=== PATIENT | female | born 1930 | race Caucasian/White ===

== ENCOUNTER 2016-09-27 20:31 | Emergency (ER) | payer OTHER ==
[~2016-09-27] VITALS: Ht 152.4 cm; Wt 94.4 kg
[2016-09-27 21:16] LABS: ADD MIUA? NO; BILIRUBIN NEGATIVE; BLOOD NEGATIVE; COLOR YELLOW ((YELLOW)); GLUCOSE (STRIP) NEGATIVE; KETONES NEGATIVE; LEUKOCYTES NEGATIVE; NITRITE NEGATIVE; PROTEIN (STRIP) NEGATIVE; SPECIFIC GRAVITY 1.014 (1.000-1.030); UCUL ADDED? NO; UROBILINOGEN 0.2 MG/DL (0.2-1.0)
[2016-09-27 22:00] LABS: HEMATOCRIT 38.2 % (36.0-46.0); MCHC 30.9 G/DL (30.0-36.0); MCV 84.1 FL (83-99); MEAN PLAT.VOLUME 12.5 uM^3 (9.5-12.4); PLATELET COUNT 209 K/uL (156-360); RBC DIS.WIDTH-CV 15.7 % (11.8-14.6); RBC DIS.WIDTH-SD 47.6 % (39-53); RED BLOOD COUNT 4.54 M/uL (3.80-5.20); WHITE BLOOD COUNT 10.5 K/uL (4.1-10.2)
[2016-09-27 22:09] LABS: CHLORIDE 105 mEq/L (99-109); GLUCOSE 101 mg/dL (70-99); POTASSIUM 3.8 mEq/L (3.7-5.4); SODIUM 147 mEq/L (136-147)
[2016-09-27 22:10] LABS: ANION GAP 11 MEQ/L (2-14)
[2016-09-27 22:13] LABS: GFR ESTIMATE (CALCULATED) 24 mL/min/; UREA NITROGEN (BUN) 31 mg/dL (9-23)
[2016-09-28 00:35] VITALS: BP 139/74
== END 2016-09-28 00:55 | disposition home or self-care (01) ==
LOC: EME 20:31
DX: R32 Unspecified urinary incontinence (principal); N28.9 Disorder of kidney and ureter, unspecified; I10 Essential (primary) hypertension; E11.9 Type 2 diabetes mellitus without complications; Z87.891 Personal history of nicotine dependence
CPT/HCPCS: 76770; 80048; 81003; 85027; 99281; 99284

== ENCOUNTER 2017-03-08 16:19 | Observation (INO) | payer OTHER ==
[~2017-03-08] VITALS: Ht 162.6 cm; Wt 101.2 kg
[2017-03-08 17:01] LABS: HEMATOCRIT 41.6 % (36.0-46.0); MCH 25.2 PG (29.0-34.0); MCV 83.9 FL (83-99); MEAN PLAT.VOLUME 11.6 uM^3 (9.5-12.4); PLATELET COUNT 265 K/uL (156-360); RBC DIS.WIDTH-CV 16.1 % (11.8-14.6); RED BLOOD COUNT 4.96 M/uL (3.80-5.20)
[2017-03-08 17:12] LABS: CHLORIDE 103 mEq/L (99-109); POTASSIUM 3.2 mEq/L (3.7-5.4); SODIUM 143 mEq/L (136-147)
[2017-03-08 17:14] LABS: GLUCOSE 127 mg/dL (70-99)
[2017-03-08 17:15] LABS: ANION GAP 13 MEQ/L (2-14)
[2017-03-08 17:17] LABS: GFR ESTIMATE (CALCULATED) 25 mL/min/
[2017-03-08 17:18] LABS: UREA NITROGEN (BUN) 30 mg/dL (9-23)
[2017-03-08 17:27] LABS: TROP-I INTERPRETATION NEGATIVE; TROPONIN-I 0.01 ng/mL (0.0-0.30)
[2017-03-08] MEDS ORDERED: ATORVASTATIN CA40 MG PO (18:20)
[2017-03-08] MEDS ORDERED: METFORMIN HCL500 MG PO (18:20)
[2017-03-08] MEDS ORDERED: EZETIMIBE10 MG PO (18:20)
[2017-03-08] MEDS ORDERED: LASIX40 MG PO (18:20)
[2017-03-08] MEDS ORDERED: NORVASC10 MG PO (18:20)
[2017-03-08] MEDS ORDERED: COREG12.5 M1 PO (18:21)
[2017-03-08] MEDS ORDERED: HYZAAR 100-11 TABLET PO (18:21)
[2017-03-08] MEDS ORDERED: KLOR-CON M2020 MEQ PO (18:21)
[2017-03-08 20:02] VITALS: BP 130/62
[2017-03-08 21:48] LABS: POINT-OF-CARE METER ID UU14162513
[2017-03-08 23:54] VITALS: BP 147/62
[2017-03-08 23:58] LABS: TROP-I INTERPRETATION NEGATIVE; TROPONIN-I 0.01 ng/mL (0.0-0.30)
[2017-03-09 02:57] VITALS: BP 116/67
[2017-03-09 05:56] LABS: HEMATOCRIT 39.5 % (36.0-46.0); MCH 25.3 PG (29.0-34.0); MCHC 30.4 G/DL (30.0-36.0); MCV 83.3 FL (83-99); MEAN PLAT.VOLUME 11.7 uM^3 (9.5-12.4); PLATELET COUNT 219 K/uL (156-360); RBC DIS.WIDTH-CV 15.9 % (11.8-14.6); RBC DIS.WIDTH-SD 48.6 % (39-53); RED BLOOD COUNT 4.74 M/uL (3.80-5.20); WHITE BLOOD COUNT 11.8 K/uL (4.1-10.2)
[2017-03-09 06:19] LABS: ANION GAP 14 MEQ/L (2-14); CHLORIDE 104 MEQ/L (99-109); GFR ESTIMATE (CALCULATED) 24 mL/min/; GLUCOSE 183 mg/dL (70-99); SAMPLE HEMOLYSIS CHECK 0; SAMPLE ICTERIC CHECK 0; SAMPLE LIPEMIA CHECK 0; SODIUM 143 MEQ/L (136-147); UREA NITROGEN (BUN) 39 mg/dL (9-23)
[2017-03-09 06:22] LABS: TROP-I INTERPRETATION NEGATIVE; TROPONIN-I 0.03 ng/mL (0.0-0.30)
[2017-03-09 06:32] VITALS: BP 129/61
[2017-03-09 06:43] LABS: POTASSIUM 4.5 MEQ/L (3.7-5.4)
[2017-03-09 11:14] VITALS: BP 134/65
[2017-03-09 12:22] LABS: POINT-OF-CARE METER ID UU13113831
[2017-03-09 16:03] VITALS: BP 136/96
[2017-03-09 17:13] LABS: POINT-OF-CARE METER ID UU13113831
[2017-03-09] MEDS ORDERED: DUONEB 2.5-0.5 M3 ML AEROSOL (17:27)
[2017-03-09] MEDS ORDERED: ZITHROMAX250 MG PO (17:27)
[2017-03-09] MEDS ORDERED: Robitussin AC,Tussi- PO (17:27)
== END 2017-03-09 18:47 | disposition home health service (06) ==
LOC: EME 16:19 → EDOF 17:48 → 5WEST 17:48
PROVIDERS: Emergency Medicine; Family Medicine
DX: R07.9 Chest pain, unspecified (principal); R05 Cough; Z85.3 Personal history of malignant neoplasm of breast; I10 Essential (primary) hypertension; E11.9 Type 2 diabetes mellitus without complications; E87.6 Hypokalemia
CPT/HCPCS: 71020; 80048; 82948; 84484; 85027; 93005; 94640; 94640 76; 99202; 99281; 99285; G0378; J0456; J0696; J1644; J1885; J2270; J2930; J7050; J7512

== ENCOUNTER 2017-10-17 06:48 | Inpatient (IN) | payer OTHER ==
[~2017-10-17] VITALS: Ht 162.6 cm; Wt 102.9 kg
[~2017-10-17 06:48] MED LIST: ATORVASTATIN CA40 MG PO; COREG12.5 M1 PO; DUONEB 2.5-0.5 M3 ML AEROSOL; EZETIMIBE10 MG PO; HYZAAR 100-11 TABLET PO; KLOR-CON M2020 MEQ PO; LASIX40 MG PO; METFORMIN HCL500 MG PO; NORVASC10 MG PO; Robitussin AC,Tussi- PO; ZITHROMAX250 MG PO
[2017-10-17] MEDS ORDERED: AMARYL2 MG PO (07:14)
[2017-10-17] MEDS ORDERED: ADVAIR 250/501 DISK IH (07:15)
[2017-10-17 08:40] LABS: HEMATOCRIT 40.7 % (36.0-46.0); HEMOGLOBIN 12.5 G/DL (11.9-15.5); MCH 26.1 PG (29.0-34.0); MCHC 30.7 G/DL (30.0-36.0); PLATELET COUNT 234 K/uL (156-360); RBC DIS.WIDTH-CV 15.7 % (11.8-14.6); RED BLOOD COUNT 4.79 M/uL (3.80-5.20); WHITE BLOOD COUNT 18.5 K/uL (4.1-10.2)
[2017-10-17 08:49] LABS: ALBUMIN 3.7 g/dL (3.2-4.8); CHLORIDE 107 mEq/L (99-109); SODIUM 142 mEq/L (136-147)
[2017-10-17 08:51] LABS: GLUCOSE 150 mg/dL (70-99)
[2017-10-17 08:52] LABS: TOTAL PROTEIN 8.3 g/dL (6.4-8.3)
[2017-10-17 08:52] LABS: APPEARANCE CLEAR ((CLEAR)); BILIRUBIN NEGATIVE; BLOOD NEGATIVE; COLOR YELLOW ((YELLOW)); GLUCOSE (STRIP) NEGATIVE; KETONES NEGATIVE; LEUKOCYTES NEGATIVE; NITRITE NEGATIVE; PROTEIN (STRIP) NEGATIVE; SPECIFIC GRAVITY 1.015 (1.000-1.030); UCUL ADDED? NO; UROBILINOGEN 0.2 MG/DL (0.2-1.0)
[2017-10-17 08:53] LABS: TOTAL BILIRUBIN 0.2 mg/dL (0.0-1.0)
[2017-10-17 08:55] LABS: ALKALINE PHOSPHATASE 107 IU/L (3-129); GFR ESTIMATE (CALCULATED) 25 mL/min/
[2017-10-17 08:56] LABS: UREA NITROGEN (BUN) 42 mg/dL (9-23)
[2017-10-17 08:57] LABS: AST (GOT) 18 IU/L (2-34)
[2017-10-17 08:58] LABS: ALT (GPT) 24 IU/L (3-49)
[2017-10-17 09:02] LABS: TROP-I INTERPRETATION NEGATIVE; TROPONIN-I 0.01 ng/mL (0.0-0.30)
[2017-10-17 13:16] LABS: HDL CHOLESTEROL 53 MG/DL (Desirable>=50); LDL CHOLESTEROL 118 mg/dL (Desirable<100); NON-HDL CHOLESTEROL 130 mg/dL (Desirable<160); TOTAL CHOLESTEROL 183 mg/dL (Desirable<200); TRIGLYCERIDES 59 MG/DL (Normal: <150)
[2017-10-17 14:30] VITALS: BP 131/78
[2017-10-17 16:00] LABS: HEMATOCRIT 39.1 % (36.0-46.0); MCH 25.6 PG (29.0-34.0); MCHC 30.7 G/DL (30.0-36.0); MCV 83.4 FL (83-99); PLATELET COUNT 270 K/uL (156-360); RBC DIS.WIDTH-CV 15.8 % (11.8-14.6); RBC DIS.WIDTH-SD 47.7 % (39-53); RED BLOOD COUNT 4.69 M/uL (3.80-5.20); WHITE BLOOD COUNT 15.6 K/uL (4.1-10.2)
[2017-10-17 17:46] LABS: ERTH.SED.RATE 100 MM/HR (0-30)
[2017-10-17 20:22] VITALS: BP 159/74
[2017-10-18] VITALS (7 sets, daily range): BP systolic 111–142; BP diastolic 60–101
[2017-10-18 10:41] LABS: HEMOGLOBIN A1c (GLYCOHEMOGLOB) 5.9 % (Below 5.7)
[2017-10-19 06:16] VITALS: BP 138/65
[2017-10-19 07:01] LABS: BASOPHIL (%) 0.3 % (0-1); EOSINOPHIL (%) 1.6 % (0-5); EOSINOPHIL COUNT 0.2 K/uL (0-0.3); HEMATOCRIT 37.2 % (36.0-46.0); HEMOGLOBIN 11.3 G/DL (11.9-15.5); IMMATURE GRANULOCYTE (%) 1.2 % (0.0-0.7); LYMPHOCYTE (%) 22.5 % (15-42); LYMPHOCYTE COUNT 2.1 K/uL (1.0-2.8); MCH 25.8 PG (29.0-34.0); MCHC 30.4 G/DL (30.0-36.0); MCV 84.9 FL (83-99); MONOCYTE (%) 12.7 % (3-12); MONOCYTE COUNT 1.2 K/uL (0-0.8); NEUTROPHIL (%) 61.7 % (45-76); NEUTROPHIL COUNT 5.7 K/uL (1.8-6.4); RBC DIS.WIDTH-CV 15.4 % (11.8-14.6); RBC DIS.WIDTH-SD 48.6 % (39-53); RED BLOOD COUNT 4.38 M/uL (3.80-5.20); WHITE BLOOD COUNT 9.3 K/uL (4.1-10.2)
[2017-10-19 07:06] LABS: CHLORIDE 105 MEQ/L (99-109); CREATININE 1.7 MG/DL (0.6-1.3); GFR ESTIMATE (CALCULATED) 30 mL/min/; GLUCOSE 122 mg/dL (70-99); POTASSIUM 3.4 MEQ/L (3.7-5.4); SODIUM 142 MEQ/L (136-147); UREA NITROGEN (BUN) 27 mg/dL (9-23)
[2017-10-19 07:40] LABS: PLAT.SUFFICIENCY ADEQUATE
[2017-10-19 07:43] VITALS: BP 142/62
[2017-10-19 07:45] LABS: PLATELET COUNT 188 K/uL (156-360)
[2017-10-19 12:21] VITALS: BP 117/57
[2017-10-19 16:04] VITALS: BP 95/51
[2017-10-19 20:36] VITALS: BP 105/81
[2017-10-19 23:25] VITALS: BP 103/55
[2017-10-20 09:07] VITALS: BP 144/62
[2017-10-20 12:46] VITALS: BP 138/66
[2017-10-20 16:13] VITALS: BP 104/57
[2017-10-20 17:05] VITALS: BP 133/70
[2017-10-20 19:37] VITALS: BP 112/54
[2017-10-20 23:53] VITALS: BP 109/55
[2017-10-21 04:58] VITALS: BP 143/69
[2017-10-21 06:27] LABS: BASOPHIL (%) 0.2 % (0-1); EOSINOPHIL (%) 1.5 % (0-5); EOSINOPHIL COUNT 0.2 K/uL (0-0.3); HEMATOCRIT 32.6 % (36.0-46.0); HEMOGLOBIN 9.6 G/DL (11.9-15.5); IMMATURE GRANULOCYTE (%) 0.9 % (0.0-0.7); LYMPHOCYTE (%) 22.8 % (15-42); LYMPHOCYTE COUNT 2.5 K/uL (1.0-2.8); MCH 25.3 PG (29.0-34.0); MCHC 29.4 G/DL (30.0-36.0); MONOCYTE (%) 11.9 % (3-12); MONOCYTE COUNT 1.3 K/uL (0-0.8); NEUTROPHIL (%) 62.7 % (45-76); NEUTROPHIL COUNT 6.9 K/uL (1.8-6.4); PLATELET COUNT 195 K/uL (156-360); RBC DIS.WIDTH-CV 15.9 % (11.8-14.6); RBC DIS.WIDTH-SD 49.7 % (39-53); RED BLOOD COUNT 3.79 M/uL (3.80-5.20)
[2017-10-21 06:50] LABS: CHLORIDE 105 MEQ/L (99-109); CREATININE 2.1 MG/DL (0.6-1.3); GFR ESTIMATE (CALCULATED) 24 mL/min/; GLUCOSE 108 mg/dL (70-99); POTASSIUM 3.6 MEQ/L (3.7-5.4); SODIUM 142 MEQ/L (136-147); UREA NITROGEN (BUN) 39 mg/dL (9-23)
[2017-10-21 08:00] VITALS: BP 112/55
[2017-10-21] MEDS ORDERED: HEPARIN SO5000 UNIT4 SC (12:35)
[2017-10-21] MEDS ORDERED: TYLENOL REGULA325 MG PO (12:36)
[2017-10-21] MEDS ORDERED: LEVETIRACETAM500 MG PO (12:36)
[2017-10-21] MEDS ORDERED: ASPIR-LOW81 MG PO (12:36)
[2017-10-21 15:56] VITALS: BP 121/65
== END 2017-10-21 15:56 | DRG 100 ==
LOC: EME 06:48 → EDOF 11:20 → 5SOUTH 11:20 → EDOF 11:20 → ENRESERV 11:22 → CANRESERV 11:28 → ENRESERV 11:35 → 5SOUTH 14:24
PROVIDERS: Family Medicine; Physician Assistant
DX: R56.9 Unspecified convulsions (principal); G93.49 Other encephalopathy; E11.649 Type 2 diabetes mellitus with hypoglycemia without coma; E11.22 Type 2 diabetes mellitus with diabetic chronic kidney disease; R26.9 Unspecified abnormalities of gait and mobility; I12.9 Hypertensive chronic kidney disease with stage 1 through stage 4 chronic kidney disease, or unspecified chronic kidney disease; N18.3 Chronic kidney disease, stage 3 (moderate); D63.1 Anemia in chronic kidney disease; E87.6 Hypokalemia; M19.90 Unspecified osteoarthritis, unspecified site; E66.9 Obesity, unspecified; Z68.38 Body mass index [BMI] 38.0-38.9, adult; Z85.3 Personal history of malignant neoplasm of breast; Z86.73 Personal history of transient ischemic attack (TIA), and cerebral infarction without residual deficits; Z87.891 Personal history of nicotine dependence; Z79.84 Long term (current) use of oral hypoglycemic drugs; Z23 Encounter for immunization
CPT/HCPCS: 70450; 70551; 71045; 80048; 80053; 80061; 81003; 82948; 83036; 83605; 84484; 85025; 85027; 85652; 87040; 87502; 90686; 92526 GN; 92610 GN; 93005; 93880; 94640; 94640 76; 94799; 95819; 97530 GO; 97530 GP; 99281; 99285; G0378; J1644; J1953; J2060; J7050

== ENCOUNTER 2018-01-24 07:01 | Inpatient (IN) | payer OTHER ==
[~2018-01-24] VITALS: Ht 165.1 cm; Wt 106.0 kg
[~2018-01-24 07:01] MED LIST changes: +ADVAIR 250/501 DISK IH; +AMARYL2 MG PO; +ASPIR-LOW81 MG PO; +HEPARIN SO5000 UNIT4 SC; +LEVETIRACETAM500 MG PO; +TYLENOL REGULA325 MG PO
[2018-01-24 07:48] LABS: BASOPHIL (%) 0.2 % (0-1); EOSINOPHIL (%) 2.3 % (0-5); EOSINOPHIL COUNT 0.2 K/uL (0-0.3); HEMATOCRIT 42.5 % (36.0-46.0); HEMOGLOBIN 12.8 G/DL (11.9-15.5); IMMATURE GRANULOCYTE (%) 0.5 % (0.0-0.7); LYMPHOCYTE (%) 32.4 % (15-42); LYMPHOCYTE COUNT 3.2 K/uL (1.0-2.8); MCH 26.6 PG (29.0-34.0); MCHC 30.1 G/DL (30.0-36.0); MCV 88.2 FL (83-99); MONOCYTE (%) 10.4 % (3-12); NEUTROPHIL (%) 54.2 % (45-76); NEUTROPHIL COUNT 5.3 K/uL (1.8-6.4); PLATELET COUNT 197 K/uL (156-360); RBC DIS.WIDTH-CV 15.1 % (11.8-14.6); RBC DIS.WIDTH-SD 48.4 % (39-53); RED BLOOD COUNT 4.82 M/uL (3.80-5.20); WHITE BLOOD COUNT 9.8 K/uL (4.1-10.2)
[2018-01-24 07:54] LABS: INTER. NORMALIZED RATIO 1.3
[2018-01-24 07:57] LABS: PTT 28.1 SEC (25-37)
[2018-01-24 08:12] LABS: TROP-I INTERPRETATION NEGATIVE; TROPONIN-I < 0.01 ng/mL (0.0-0.30)
[2018-01-24 08:20] LABS: CHLORIDE 110 MEQ/L (99-109); CREATININE 1.5 MG/DL (0.6-1.3); GFR ESTIMATE (CALCULATED) 35 mL/min/; GLUCOSE 111 mg/dL (70-99); POTASSIUM 3.3 MEQ/L (3.7-5.4); SODIUM 147 MEQ/L (136-147); UREA NITROGEN (BUN) 20 mg/dL (9-23)
[2018-01-24 12:17] VITALS: BP 133/63
[2018-01-24] MEDS ORDERED: LASIX20 MG PO (13:46)
[2018-01-24 15:11] VITALS: BP 132/73
[2018-01-24 20:07] VITALS: BP 122/70
[2018-01-24 23:54] VITALS: BP 128/72
[2018-01-25 04:27] VITALS: BP 136/85
[2018-01-25 06:44] LABS: BASOPHIL (%) 0.1 % (0-1); EOSINOPHIL (%) 0 % (0-5); HEMATOCRIT 39.4 % (36.0-46.0); HEMOGLOBIN 11.9 G/DL (11.9-15.5); IMMATURE GRANULOCYTE (%) 1.2 % (0.0-0.7); LYMPHOCYTE (%) 11.2 % (15-42); LYMPHOCYTE COUNT 1.8 K/uL (1.0-2.8); MCH 26.3 PG (29.0-34.0); MCHC 30.2 G/DL (30.0-36.0); MCV 87.2 FL (83-99); MONOCYTE (%) 6.2 % (3-12); NEUTROPHIL (%) 81.3 % (45-76); NEUTROPHIL COUNT 12.7 K/uL (1.8-6.4); PLATELET COUNT 213 K/uL (156-360); RBC DIS.WIDTH-SD 47.8 % (39-53); RED BLOOD COUNT 4.52 M/uL (3.80-5.20); WHITE BLOOD COUNT 15.7 K/uL (4.1-10.2)
[2018-01-25 07:13] LABS: CHLORIDE 108 MEQ/L (99-109); CREATININE 1.5 MG/DL (0.6-1.3); GFR ESTIMATE (CALCULATED) 35 mL/min/; GLUCOSE 145 mg/dL (70-99); POTASSIUM 4.1 MEQ/L (3.7-5.4); SODIUM 144 MEQ/L (136-147); UREA NITROGEN (BUN) 26 mg/dL (9-23)
[2018-01-25 10:43] VITALS: BP 136/63
[2018-01-25 14:24] VITALS: BP 120/81
[2018-01-25 15:24] VITALS: BP 138/60
[2018-01-25 19:00] VITALS: BP 117/61
[2018-01-25 23:05] VITALS: BP 152/73
[2018-01-26 03:20] VITALS: BP 133/72
[2018-01-26 06:52] LABS: BASOPHIL (%) 0.2 % (0-1); EOSINOPHIL (%) 0.1 % (0-5); HEMATOCRIT 39.3 % (36.0-46.0); HEMOGLOBIN 11.5 G/DL (11.9-15.5); IMMATURE GRANULOCYTE (%) 0.5 % (0.0-0.7); LYMPHOCYTE (%) 24.7 % (15-42); LYMPHOCYTE COUNT 3.3 K/uL (1.0-2.8); MCH 25.8 PG (29.0-34.0); MCHC 29.3 G/DL (30.0-36.0); MCV 88.3 FL (83-99); MONOCYTE (%) 8.8 % (3-12); MONOCYTE COUNT 1.2 K/uL (0-0.8); NEUTROPHIL (%) 65.7 % (45-76); NEUTROPHIL COUNT 8.8 K/uL (1.8-6.4); RBC DIS.WIDTH-CV 14.9 % (11.8-14.6); RED BLOOD COUNT 4.45 M/uL (3.80-5.20); WHITE BLOOD COUNT 13.4 K/uL (4.1-10.2)
[2018-01-26 07:02] LABS: CHLORIDE 107 MEQ/L (99-109); CREATININE 1.6 MG/DL (0.6-1.3); GFR ESTIMATE (CALCULATED) 33 mL/min/; GLUCOSE 112 mg/dL (70-99); SODIUM 144 MEQ/L (136-147); UREA NITROGEN (BUN) 27 mg/dL (9-23)
[2018-01-26 07:11] LABS: PLATELET CLUMPS PRESENT - PLATELET COUNT APPEARS ADQ.
[2018-01-26 07:17] LABS: PLATELET COUNT UNABLE TO REPORT K/uL (156-360)
[2018-01-26 07:30] VITALS: BP 140/70
[2018-01-26 15:22] VITALS: BP 125/60
[2018-01-26 23:31] VITALS: BP 130/66
[2018-01-27 06:49] LABS: BASOPHIL (%) 0.3 % (0-1); EOSINOPHIL (%) 1.4 % (0-5); EOSINOPHIL COUNT 0.1 K/uL (0-0.3); HEMOGLOBIN 11.2 G/DL (11.9-15.5); IMMATURE GRANULOCYTE (%) 0.8 % (0.0-0.7); LYMPHOCYTE (%) 26.8 % (15-42); LYMPHOCYTE COUNT 2.4 K/uL (1.0-2.8); MCH 26.2 PG (29.0-34.0); MCHC 29.5 G/DL (30.0-36.0); MONOCYTE (%) 10.5 % (3-12); MONOCYTE COUNT 0.9 K/uL (0-0.8); NEUTROPHIL (%) 60.2 % (45-76); NEUTROPHIL COUNT 5.4 K/uL (1.8-6.4); RBC DIS.WIDTH-CV 14.9 % (11.8-14.6); RBC DIS.WIDTH-SD 48.2 % (39-53); RED BLOOD COUNT 4.27 M/uL (3.80-5.20); WHITE BLOOD COUNT 8.9 K/uL (4.1-10.2)
[2018-01-27 07:05] LABS: CHLORIDE 107 MEQ/L (99-109); CREATININE 1.5 MG/DL (0.6-1.3); GFR ESTIMATE (CALCULATED) 35 mL/min/; GLUCOSE 104 mg/dL (70-99); SODIUM 143 MEQ/L (136-147); UREA NITROGEN (BUN) 29 mg/dL (9-23)
[2018-01-27 07:39] LABS: PLATELET CLUMPS PRESENT - PLATELET COUNT APPEARS ADQ.; PLATELET COUNT UNABLE TO REPORT K/uL (156-360)
[2018-01-27 08:01] VITALS: BP 135/65
[2018-01-27 16:25] VITALS: BP 119/57
[2018-01-27 23:15] VITALS: BP 143/67
[2018-01-28 08:57] VITALS: BP 132/69
[2018-01-28] MEDS ORDERED: DULERA 100 MCG/13 GM IH (12:37)
[2018-01-28] MEDS ORDERED: AUGMENTIN875 MG PO (12:37)
== END 2018-01-28 14:15 | disposition home or self-care (01) | DRG 194 ==
LOC: EME → EDBD 07:01 → 2EAST 11:06 → EDOF 11:06 → ENRESERV 11:11 → 2EAST 12:15
PROVIDERS: Emergency Medicine; Family Medicine
DX: J15.9 Unspecified bacterial pneumonia (principal); R09.02 Hypoxemia; Z86.73 Personal history of transient ischemic attack (TIA), and cerebral infarction without residual deficits; E11.9 Type 2 diabetes mellitus without complications; J44.9 Chronic obstructive pulmonary disease, unspecified; J45.901 Unspecified asthma with (acute) exacerbation; I12.9 Hypertensive chronic kidney disease with stage 1 through stage 4 chronic kidney disease, or unspecified chronic kidney disease; E11.22 Type 2 diabetes mellitus with diabetic chronic kidney disease; N18.2 Chronic kidney disease, stage 2 (mild); E66.9 Obesity, unspecified; Z68.38 Body mass index [BMI] 38.0-38.9, adult; Z87.891 Personal history of nicotine dependence; Z85.3 Personal history of malignant neoplasm of breast; Z90.12 Acquired absence of left breast and nipple
CPT/HCPCS: 71045; 80048; 82948; 83605; 83880; 84484; 85025; 85610; 85730; 87040; 93005; 94640; 94640 76; 94799; 99202; 99281; 99285; J0456; J0696; J1644; J2405; J2930

== ENCOUNTER 2018-02-08 09:39 | Inpatient (IN) | payer OTHER ==
[~2018-02-08] VITALS: Ht 165.1 cm; Wt 106.1 kg
[~2018-02-08 09:39] MED LIST changes: +AUGMENTIN875 MG PO; +DULERA 100 MCG/13 GM IH; +LASIX20 MG PO
[2018-02-08 10:27] LABS: HEMATOCRIT 37.8 % (36.0-46.0); HEMOGLOBIN 11.4 G/DL (11.9-15.5); MCH 26.5 PG (29.0-34.0); MCHC 30.2 G/DL (30.0-36.0); MCV 87.9 FL (83-99); RBC DIS.WIDTH-CV 15.1 % (11.8-14.6); RBC DIS.WIDTH-SD 48.4 % (39-53); WHITE BLOOD COUNT 9.8 K/uL (4.1-10.2)
[2018-02-08 10:28] LABS: PLATELET COUNT 204 K/uL (156-360)
[2018-02-08 10:37] LABS: CHLORIDE 112 mEq/L (99-109); POTASSIUM 4.2 mEq/L (3.7-5.4); SODIUM 149 mEq/L (136-147)
[2018-02-08 10:39] LABS: GLUCOSE 112 mg/dL (70-99)
[2018-02-08 10:42] LABS: CREATININE 1.4 mg/dL (0.6-1.3); GFR ESTIMATE (CALCULATED) 38 mL/min/
[2018-02-08 10:43] LABS: UREA NITROGEN (BUN) 20 mg/dL (9-23)
[2018-02-08 10:48] LABS: TROP-I INTERPRETATION NEGATIVE; TROPONIN-I 0.01 ng/mL (0.0-0.30)
[2018-02-08 14:26] VITALS: BP 159/72
[2018-02-08] MEDS ORDERED: ASPIR 8181 M1 PO (15:02)
[2018-02-08] MEDS ORDERED: BREO ELLIPTA I1 EACH IH (15:04)
[2018-02-08] MEDS ORDERED: ALBUTEROL2.5 MG/3 M IH (15:06)
[2018-02-08] MEDS ORDERED: ACETAMINOPHEN325 M1 PO (15:07)
[2018-02-08 19:18] VITALS: BP 128/67
[2018-02-08 23:50] VITALS: BP 162/60
[2018-02-09 03:45] VITALS: BP 160/68
[2018-02-09 06:46] LABS: HEMATOCRIT 40.2 % (36.0-46.0); MCH 25.9 PG (29.0-34.0); MCHC 29.9 G/DL (30.0-36.0); MCV 86.6 FL (83-99); PLATELET COUNT 206 K/uL (156-360); RBC DIS.WIDTH-CV 14.8 % (11.8-14.6); RBC DIS.WIDTH-SD 47.1 % (39-53); RED BLOOD COUNT 4.64 M/uL (3.80-5.20); WHITE BLOOD COUNT 13.6 K/uL (4.1-10.2)
[2018-02-09 07:08] LABS: CHLORIDE 107 MEQ/L (99-109); CREATININE 1.7 MG/DL (0.6-1.3); GFR ESTIMATE (CALCULATED) 30 mL/min/; POTASSIUM 4.5 MEQ/L (3.7-5.4); SODIUM 142 MEQ/L (136-147); UREA NITROGEN (BUN) 29 mg/dL (9-23)
[2018-02-09 07:23] LABS: GLUCOSE 187 mg/dL (70-99)
[2018-02-09 09:00] VITALS: BP 169/70
[2018-02-09 16:12] VITALS: BP 176/77
[2018-02-10 00:09] VITALS: BP 136/66
[2018-02-10 08:06] VITALS: BP 149/79
[2018-02-10 12:52] LABS: BASOPHIL (%) 0.2 % (0-1); EOSINOPHIL (%) 0 % (0-5); HEMATOCRIT 39.4 % (36.0-46.0); HEMOGLOBIN 11.8 G/DL (11.9-15.5); IMMATURE GRANULOCYTE (%) 1.6 % (0.0-0.7); LYMPHOCYTE (%) 5.7 % (15-42); LYMPHOCYTE COUNT 1.1 K/uL (1.0-2.8); MCH 26.2 PG (29.0-34.0); MCHC 29.9 G/DL (30.0-36.0); MCV 87.4 FL (83-99); NEUTROPHIL (%) 87.5 % (45-76); NEUTROPHIL COUNT 17.2 K/uL (1.8-6.4); PLATELET COUNT 216 K/uL (156-360); RBC DIS.WIDTH-SD 47.9 % (39-53); RED BLOOD COUNT 4.51 M/uL (3.80-5.20); WHITE BLOOD COUNT 19.6 K/uL (4.1-10.2)
[2018-02-10 13:18] LABS: CHLORIDE 108 MEQ/L (99-109); CREATININE 1.5 MG/DL (0.6-1.3); GFR ESTIMATE (CALCULATED) 35 mL/min/; GLUCOSE 182 mg/dL (70-99); POTASSIUM 4.4 MEQ/L (3.7-5.4); SODIUM 140 MEQ/L (136-147); UREA NITROGEN (BUN) 34 mg/dL (9-23)
[2018-02-10 14:40] VITALS: BP 122/61
[2018-02-10 16:30] VITALS: BP 166/72
[2018-02-10 23:34] VITALS: BP 151/70
[2018-02-11 07:34] LABS: BASOPHIL (%) 0.1 % (0-1); EOSINOPHIL (%) 0 % (0-5); HEMATOCRIT 37.8 % (36.0-46.0); HEMOGLOBIN 11.7 G/DL (11.9-15.5); IMMATURE GRANULOCYTE (%) 1.8 % (0.0-0.7); LYMPHOCYTE (%) 6.2 % (15-42); MCH 26.8 PG (29.0-34.0); MCV 86.5 FL (83-99); MONOCYTE (%) 4.4 % (3-12); MONOCYTE COUNT 0.7 K/uL (0-0.8); NEUTROPHIL (%) 87.5 % (45-76); NEUTROPHIL COUNT 13.8 K/uL (1.8-6.4); PLATELET COUNT 186 K/uL (156-360); RBC DIS.WIDTH-CV 15.1 % (11.8-14.6); RBC DIS.WIDTH-SD 47.8 % (39-53); RED BLOOD COUNT 4.37 M/uL (3.80-5.20); WHITE BLOOD COUNT 15.8 K/uL (4.1-10.2)
[2018-02-11 07:56] VITALS: BP 142/75
[2018-02-11 16:15] VITALS: BP 181/94
[2018-02-11 23:59] VITALS: BP 146/72
[2018-02-12 07:27] LABS: BASOPHIL (%) 0.3 % (0-1); EOSINOPHIL (%) 0.1 % (0-5); HEMATOCRIT 39.6 % (36.0-46.0); HEMOGLOBIN 12.1 G/DL (11.9-15.5); IMMATURE GRANULOCYTE (%) 2.8 % (0.0-0.7); LYMPHOCYTE (%) 14.1 % (15-42); LYMPHOCYTE COUNT 2.3 K/uL (1.0-2.8); MCH 25.9 PG (29.0-34.0); MCHC 30.6 G/DL (30.0-36.0); MCV 84.8 FL (83-99); MONOCYTE (%) 12.7 % (3-12); NEUTROPHIL COUNT 11.2 K/uL (1.8-6.4); RBC DIS.WIDTH-CV 15.2 % (11.8-14.6); RED BLOOD COUNT 4.67 M/uL (3.80-5.20); WHITE BLOOD COUNT 15.9 K/uL (4.1-10.2)
[2018-02-12 07:28] VITALS: BP 142/77
[2018-02-12 07:43] LABS: CHLORIDE 111 MEQ/L (99-109); CREATININE 1.3 MG/DL (0.6-1.3); GFR ESTIMATE (CALCULATED) 41 mL/min/; GLUCOSE 121 mg/dL (70-99); POTASSIUM 4.3 MEQ/L (3.7-5.4); SODIUM 140 MEQ/L (136-147); UREA NITROGEN (BUN) 33 mg/dL (9-23)
[2018-02-12 07:50] LABS: PLAT.SUFFICIENCY DECREASED
[2018-02-12 07:53] LABS: PLATELET COUNT 98 K/uL (156-360)
[2018-02-12 15:57] VITALS: BP 140/74
[2018-02-13 00:05] VITALS: BP 136/65
[2018-02-13 07:27] VITALS: BP 150/67
[2018-02-13 15:35] VITALS: BP 149/64
[2018-02-13 19:30] VITALS: BP 154/69
[2018-02-13 23:35] VITALS: BP 114/57
[2018-02-14 08:13] VITALS: BP 148/63
[2018-02-14] MEDS ORDERED: PREDNISONE10 MG PO (11:59)
[2018-02-14] MEDS ORDERED: HEPARIN SO5000 UNIT4 SC (11:59)
== END 2018-02-14 15:27 | DRG 202 ==
LOC: EME 09:39 → EDOF 12:36 → ENRESERV 12:38 → 2EAST 12:50 → EDOF 12:50 → ENRESERV 12:54 → 2EAST 13:57
PROVIDERS: Emergency Medicine; Family Medicine
DX: J45.901 Unspecified asthma with (acute) exacerbation (principal); I13.0 Hypertensive heart and chronic kidney disease with heart failure and stage 1 through stage 4 chronic kidney disease, or unspecified chronic kidney disease; I50.9 Heart failure, unspecified; N18.2 Chronic kidney disease, stage 2 (mild); N17.9 Acute kidney failure, unspecified; E11.22 Type 2 diabetes mellitus with diabetic chronic kidney disease; R09.02 Hypoxemia; G40.909 Epilepsy, unspecified, not intractable, without status epilepticus; M19.90 Unspecified osteoarthritis, unspecified site; E66.9 Obesity, unspecified; Z68.38 Body mass index [BMI] 38.0-38.9, adult; I69.321 Dysphasia following cerebral infarction; Z85.3 Personal history of malignant neoplasm of breast; Z87.01 Personal history of pneumonia (recurrent); Z87.891 Personal history of nicotine dependence
CPT/HCPCS: 71045; 80048; 83880; 84484; 85025; 85027; 93005; 94640; 94640 76; 94760; 99202; 99281; 99285; J1644; J1956; J2930; J7512

== ENCOUNTER 2018-04-23 14:06 | Inpatient (IN) | payer OTHER ==
[~2018-04-23] VITALS: Ht 152.4 cm; Wt 107.0 kg
[~2018-04-23 14:06] MED LIST changes: +ACETAMINOPHEN325 M1 PO; +ALBUTEROL2.5 MG/3 M IH; +ASPIR 8181 M1 PO; +BREO ELLIPTA I1 EACH IH; +PREDNISONE10 MG PO
[2018-04-23 14:39] LABS: BASOPHIL (%) 0.2 % (0-1); EOSINOPHIL (%) 1.8 % (0-5); EOSINOPHIL COUNT 0.2 K/uL (0-0.3); HEMATOCRIT 35.6 % (36.0-46.0); HEMOGLOBIN 10.6 G/DL (11.9-15.5); IMMATURE GRANULOCYTE (%) 0.8 % (0.0-0.7); LYMPHOCYTE (%) 18.1 % (15-42); LYMPHOCYTE COUNT 1.8 K/uL (1.0-2.8); MCH 26.4 PG (29.0-34.0); MCHC 29.8 G/DL (30.0-36.0); MCV 88.8 FL (83-99); MONOCYTE (%) 9.7 % (3-12); NEUTROPHIL (%) 69.4 % (45-76); PLATELET COUNT 224 K/uL (156-360); RBC DIS.WIDTH-SD 51.8 % (39-53); RED BLOOD COUNT 4.01 M/uL (3.80-5.20)
[2018-04-23 14:48] LABS: ALBUMIN 3.5 g/dL (3.2-4.8); CHLORIDE 110 mEq/L (99-109); POTASSIUM 3.9 mEq/L (3.7-5.4); SODIUM 144 mEq/L (136-147)
[2018-04-23 14:49] LABS: MAGNESIUM 2.3 mg/dL (1.3-2.7)
[2018-04-23 14:50] LABS: GLUCOSE 149 mg/dL (70-99); TOTAL PROTEIN 7.1 g/dL (6.4-8.3)
[2018-04-23 14:52] LABS: TOTAL BILIRUBIN 0.6 mg/dL (0.0-1.0)
[2018-04-23 14:54] LABS: ALKALINE PHOSPHATASE 114 IU/L (3-129); CREATININE 1.6 mg/dL (0.6-1.3); GFR ESTIMATE (CALCULATED) 33 mL/min/
[2018-04-23 14:55] LABS: UREA NITROGEN (BUN) 20 mg/dL (9-23)
[2018-04-23 14:56] LABS: AST (GOT) 10 IU/L (2-34); DIRECT BILIRUBIN 0.2 mg/dL (0.0-0.3)
[2018-04-23 14:57] LABS: ALT (GPT) 12 IU/L (3-49)
[2018-04-23 15:02] LABS: TROP-I INTERPRETATION NEGATIVE; TROPONIN-I 0.01 ng/mL (0.0-0.30)
[2018-04-23] MEDS ORDERED: ROBITUSSIN DM118 ML PO (16:15)
[2018-04-23 16:50] VITALS: BP 134/63
[2018-04-23 19:10] VITALS: BP 134/76
[2018-04-24 00:06] VITALS: BP 135/72
[2018-04-24 03:47] VITALS: BP 140/62
[2018-04-24 06:35] LABS: BASOPHIL (%) 0.4 % (0-1); EOSINOPHIL (%) 2.5 % (0-5); EOSINOPHIL COUNT 0.2 K/uL (0-0.3); HEMATOCRIT 34.3 % (36.0-46.0); HEMOGLOBIN 10.1 G/DL (11.9-15.5); IMMATURE GRANULOCYTE (%) 0.7 % (0.0-0.7); LYMPHOCYTE (%) 20.3 % (15-42); LYMPHOCYTE COUNT 1.7 K/uL (1.0-2.8); MCH 26.2 PG (29.0-34.0); MCHC 29.4 G/DL (30.0-36.0); MCV 88.9 FL (83-99); MONOCYTE (%) 10.4 % (3-12); MONOCYTE COUNT 0.9 K/uL (0-0.8); NEUTROPHIL (%) 65.7 % (45-76); NEUTROPHIL COUNT 5.5 K/uL (1.8-6.4); PLATELET COUNT 216 K/uL (156-360); RBC DIS.WIDTH-SD 51.7 % (39-53); RED BLOOD COUNT 3.86 M/uL (3.80-5.20); WHITE BLOOD COUNT 8.4 K/uL (4.1-10.2)
[2018-04-24 06:39] LABS: CHLORIDE 110 MEQ/L (99-109); CREATININE 1.6 MG/DL (0.6-1.3); GFR ESTIMATE (CALCULATED) 33 mL/min/; POTASSIUM 3.9 MEQ/L (3.7-5.4); SODIUM 144 MEQ/L (136-147); UREA NITROGEN (BUN) 19 mg/dL (9-23)
[2018-04-24 06:40] LABS: GLUCOSE 105 mg/dL (70-99)
[2018-04-24 07:38] VITALS: BP 120/59
[2018-04-24 12:03] VITALS: BP 140/61
[2018-04-24 16:20] VITALS: BP 147/69
[2018-04-25 01:19] VITALS: BP 157/80
[2018-04-25 08:03] VITALS: BP 109/56
[2018-04-25 09:50] VITALS: BP 127/69
[2018-04-25 16:38] VITALS: BP 115/57
[2018-04-25 23:50] VITALS: BP 129/60
[2018-04-26 06:38] LABS: BASOPHIL (%) 0.2 % (0-1); EOSINOPHIL (%) 2.6 % (0-5); EOSINOPHIL COUNT 0.2 K/uL (0-0.3); HEMATOCRIT 33.2 % (36.0-46.0); HEMOGLOBIN 9.8 G/DL (11.9-15.5); IMMATURE GRANULOCYTE (%) 0.9 % (0.0-0.7); LYMPHOCYTE (%) 18.5 % (15-42); LYMPHOCYTE COUNT 1.6 K/uL (1.0-2.8); MCH 26.3 PG (29.0-34.0); MCHC 29.5 G/DL (30.0-36.0); MONOCYTE (%) 9.3 % (3-12); MONOCYTE COUNT 0.8 K/uL (0-0.8); NEUTROPHIL (%) 68.5 % (45-76); PLATELET COUNT 218 K/uL (156-360); RBC DIS.WIDTH-CV 15.9 % (11.8-14.6); RBC DIS.WIDTH-SD 51.6 % (39-53); RED BLOOD COUNT 3.73 M/uL (3.80-5.20); WHITE BLOOD COUNT 8.7 K/uL (4.1-10.2)
[2018-04-26 07:00] LABS: CHLORIDE 111 MEQ/L (99-109); CREATININE 1.6 MG/DL (0.6-1.3); GFR ESTIMATE (CALCULATED) 33 mL/min/; GLUCOSE 108 mg/dL (70-99); POTASSIUM 4.1 MEQ/L (3.7-5.4); SODIUM 143 MEQ/L (136-147); UREA NITROGEN (BUN) 24 mg/dL (9-23)
[2018-04-26 08:37] VITALS: BP 135/61
[2018-04-26 15:57] VITALS: BP 132/60
[2018-04-26 19:15] VITALS: BP 151/69
[2018-04-26 23:25] VITALS: BP 152/73
[2018-04-27 07:58] VITALS: BP 138/60
[2018-04-27 12:11] VITALS: BP 130/64
[2018-04-27 16:06] VITALS: BP 155/67
[2018-04-27 23:17] VITALS: BP 147/67
[2018-04-28] VITALS (27 sets, daily range): BP systolic 86–159; BP diastolic 40–111
[2018-04-28 01:12] LABS: COMMENTS - BLOOD GASES C+; SITE LR
[2018-04-28 01:13] LABS: DEVICE NRBM; FI02 100 %; PCO2 100 mm Hg (35-45); PO2 41 mm Hg (80-100); pH 7.06 (7.35-7.45)
[2018-04-28 01:14] LABS: BICARBONATE 28.3 mEq/L (22-26); CARBOXY HGB 1.9 % (0-5)
[2018-04-28 01:17] LABS: BASOPHIL (%) 0.3 % (0-1); BASOPHIL COUNT 0.1 K/uL (0-0.1); EOSINOPHIL (%) 2.2 % (0-5); EOSINOPHIL COUNT 0.4 K/uL (0-0.3); HEMATOCRIT 39.9 % (36.0-46.0); HEMOGLOBIN 11.5 G/DL (11.9-15.5); IMMATURE GRANULOCYTE (%) 1.1 % (0.0-0.7); LYMPHOCYTE (%) 32.6 % (15-42); LYMPHOCYTE COUNT 5.8 K/uL (1.0-2.8); MCH 26.3 PG (29.0-34.0); MCHC 28.8 G/DL (30.0-36.0); MCV 91.1 FL (83-99); MONOCYTE (%) 7.2 % (3-12); MONOCYTE COUNT 1.3 K/uL (0-0.8); NEUTROPHIL (%) 56.6 % (45-76); NRBC (%) 0.1 /100 WBC (0-0); RBC DIS.WIDTH-CV 15.9 % (11.8-14.6); RBC DIS.WIDTH-SD 53.4 % (39-53); RED BLOOD COUNT 4.38 M/uL (3.80-5.20); WHITE BLOOD COUNT 17.7 K/uL (4.1-10.2)
[2018-04-28 01:19] LABS: PLATELET COUNT 295 K/uL (156-360)
[2018-04-28 01:23] LABS: INTER. NORMALIZED RATIO 1.2
[2018-04-28 01:25] LABS: PTT 34.2 SEC (25-37)
[2018-04-28 01:26] LABS: CHLORIDE 111 mEq/L (99-109); POTASSIUM 4.6 mEq/L (3.7-5.4); SODIUM 144 mEq/L (136-147)
[2018-04-28 01:28] LABS: GLUCOSE 158 mg/dL (70-99)
[2018-04-28 01:30] LABS: TOTAL BILIRUBIN 0.6 mg/dL (0.0-1.0)
[2018-04-28 01:31] LABS: TOTAL PROTEIN 8.2 g/dL (6.4-8.3)
[2018-04-28 01:32] LABS: ALKALINE PHOSPHATASE 128 IU/L (3-129); CREATININE 1.5 mg/dL (0.6-1.3); GFR ESTIMATE (CALCULATED) 35 mL/min/
[2018-04-28 01:33] LABS: UREA NITROGEN (BUN) 25 mg/dL (9-23)
[2018-04-28 01:35] LABS: ALT (GPT) 21 IU/L (3-49)
[2018-04-28 01:53] LABS: AST (GOT) 18 IU/L (2-34)
[2018-04-28 03:24] LABS: COMMENTS - BLOOD GASES C+A+; DEVICE VENT; FI02 100 %; MECHANICAL RATE 18 resp/min; MODE AC; PCO2 62 mm Hg (35-45); PEEP 10 CM/H20; PO2 67 mm Hg (80-100); SITE LR; TIDAL VOLUME 500 ML; TOTAL RESP RATE 18 resp/min; pH 7.21 (7.35-7.45)
[2018-04-28 03:25] LABS: BASE EXCESS -3.5 mEq/L (-3 to +3); BICARBONATE 24.8 mEq/L (22-26); CARBOXY HGB 1.8 % (0-5); METHEMOGLOBIN 0.8 % (0-1.5); O2 SATURATION (CALCULATED) 91.9 % (95-99)
[2018-04-28 07:04] LABS: BASOPHIL (%) 0.2 % (0-1); EOSINOPHIL (%) 0.6 % (0-5); EOSINOPHIL COUNT 0.1 K/uL (0-0.3); HEMATOCRIT 31.9 % (36.0-46.0); IMMATURE GRANULOCYTE (%) 0.8 % (0.0-0.7); LYMPHOCYTE (%) 11.2 % (15-42); LYMPHOCYTE COUNT 1.4 K/uL (1.0-2.8); MCH 26.3 PG (29.0-34.0); MCHC 29.5 G/DL (30.0-36.0); MCV 89.1 FL (83-99); MONOCYTE (%) 11.3 % (3-12); MONOCYTE COUNT 1.4 K/uL (0-0.8); NEUTROPHIL (%) 75.9 % (45-76); NEUTROPHIL COUNT 9.6 K/uL (1.8-6.4); PLATELET COUNT 217 K/uL (156-360); RBC DIS.WIDTH-CV 15.9 % (11.8-14.6); RBC DIS.WIDTH-SD 51.8 % (39-53); RED BLOOD COUNT 3.58 M/uL (3.80-5.20); WHITE BLOOD COUNT 12.6 K/uL (4.1-10.2)
[2018-04-28 07:23] LABS: CHLORIDE 110 MEQ/L (99-109); CREATININE 1.6 MG/DL (0.6-1.3); GFR ESTIMATE (CALCULATED) 33 mL/min/; HEMOGLOBIN 9.4 G/DL (11.9-15.5); POTASSIUM 4.5 MEQ/L (3.7-5.4); SODIUM 145 MEQ/L (136-147); TRIGLYCERIDES 101 MG/DL (Normal: <150); UREA NITROGEN (BUN) 26 mg/dL (9-23)
[2018-04-28 07:24] LABS: GLUCOSE 111 mg/dL (70-99)
[2018-04-28 07:39] LABS: CREATINE KINASE 46 IU/L (1-294)
[2018-04-29] VITALS (24 sets, daily range): BP systolic 117–164; BP diastolic 50–84
[2018-04-30] VITALS (18 sets, daily range): BP systolic 138–172; BP diastolic 55–89
[2018-04-30 05:26] LABS: COMMENTS - BLOOD GASES C+; DEVICE VENT; FI02 40 %; INSPIRATION TIME 0.9 seconds; MECHANICAL RATE 22 resp/min; MODE AC; PEEP 5 CM/H20; SITE LR; TIDAL VOLUME 500 ML; TOTAL RESP RATE 24 resp/min
[2018-04-30 05:27] LABS: BASE EXCESS -0.5 mEq/L (-3 to +3); BICARBONATE 22.1 mEq/L (22-26); CARBOXY HGB 1.4 % (0-5); METHEMOGLOBIN 0.8 % (0-1.5); PCO2 29 mm Hg (35-45); PO2 91 mm Hg (80-100); pH 7.49 (7.35-7.45)
[2018-04-30 06:55] LABS: CHLORIDE 111 MEQ/L (99-109); CREATINE KINASE 69 IU/L (1-294); CREATININE 1.5 MG/DL (0.6-1.3); GFR ESTIMATE (CALCULATED) 35 mL/min/; POTASSIUM 3.8 MEQ/L (3.7-5.4); SODIUM 147 MEQ/L (136-147); UREA NITROGEN (BUN) 34 mg/dL (9-23)
[2018-04-30 06:56] LABS: GLUCOSE 192 mg/dL (70-99)
[2018-04-30 06:59] LABS: HEMATOCRIT 32.9 % (36.0-46.0); HEMOGLOBIN 10.1 G/DL (11.9-15.5); MCH 26.4 PG (29.0-34.0); MCHC 30.7 G/DL (30.0-36.0); MCV 85.9 FL (83-99); PLATELET COUNT 199 K/uL (156-360); RBC DIS.WIDTH-CV 16.6 % (11.8-14.6); RBC DIS.WIDTH-SD 51.8 % (39-53); RED BLOOD COUNT 3.83 M/uL (3.80-5.20); WHITE BLOOD COUNT 13.6 K/uL (4.1-10.2)
[2018-04-30 07:25] LABS: ANISOCYTOSIS 1+; BASOPHIL (%) 0.1 % (0-1); EOSINOPHIL (%) 0 % (0-5); IMMATURE GRANULOCYTE (%) 1.3 % (0.0-0.7); LYMPHOCYTE (%) 9.5 % (15-42); LYMPHOCYTE COUNT 1.3 K/uL (1.0-2.8); MICROCYTOSIS 1+; MONOCYTE (%) 6.1 % (3-12); MONOCYTE COUNT 0.8 K/uL (0-0.8); NEUTROPHIL COUNT 11.3 K/uL (1.8-6.4)
[2018-05-01] VITALS (23 sets, daily range): BP systolic 124–194; BP diastolic 59–106
[2018-05-01 11:53] LABS: COMMENTS - BLOOD GASES +C; CONTINUOUS POS AIRWAY PRESSURE 5 cm H2O; DEVICE PB980; FI02 30 %; MODE TUBE COMP; SITE LR +A; TOTAL RESP RATE 24 resp/min
[2018-05-01 11:56] LABS: BASE EXCESS 0.4 mEq/L (-3 to +3); BICARBONATE 24.6 mEq/L (22-26); CARBOXY HGB 1.8 % (0-5); METHEMOGLOBIN 0.8 % (0-1.5); O2 SATURATION (CALCULATED) 95.8 % (95-99); PCO2 37 mm Hg (35-45); PO2 69 mm Hg (80-100); pH 7.43 (7.35-7.45)
[2018-05-02] VITALS (23 sets, daily range): BP systolic 138–181; BP diastolic 63–106
[2018-05-02 17:17] LABS: BASOPHIL (%) 0.3 % (0-1); EOSINOPHIL (%) 0 % (0-5); HEMATOCRIT 38.7 % (36.0-46.0); HEMOGLOBIN 11.5 G/DL (11.9-15.5); IMMATURE GRANULOCYTE (%) 3.1 % (0.0-0.7); LYMPHOCYTE (%) 14.5 % (15-42); LYMPHOCYTE COUNT 1.7 K/uL (1.0-2.8); MCH 26.3 PG (29.0-34.0); MCHC 29.7 G/DL (30.0-36.0); MCV 88.4 FL (83-99); MONOCYTE (%) 8.9 % (3-12); NEUTROPHIL (%) 73.2 % (45-76); NEUTROPHIL COUNT 8.5 K/uL (1.8-6.4); PLATELET COUNT 176 K/uL (156-360); RBC DIS.WIDTH-CV 16.3 % (11.8-14.6); RBC DIS.WIDTH-SD 52.6 % (39-53); RED BLOOD COUNT 4.38 M/uL (3.80-5.20); WHITE BLOOD COUNT 11.6 K/uL (4.1-10.2)
[2018-05-02 17:40] LABS: ALBUMIN 3.4 G/DL (3.2-4.8); ALKALINE PHOSPHATASE 78 IU/L (3-129); ALT (GPT) 20 IU/L (3-49); AST (GOT) 19 IU/L (2-34); CHLORIDE 111 MEQ/L (99-109); CREATININE 1.3 MG/DL (0.6-1.3); GFR ESTIMATE (CALCULATED) 41 mL/min/; GLUCOSE 147 mg/dL (70-99); MAGNESIUM 2.4 mg/dl (1.3-2.7); PHOSPHORUS 4.7 mg/dL (2.5-4.9); POTASSIUM 4.6 MEQ/L (3.7-5.4); SODIUM 144 MEQ/L (136-147); TOTAL BILIRUBIN 0.4 MG/DL (0.0-1.0); UREA NITROGEN (BUN) 40 mg/dL (9-23)
[2018-05-03 03:19] VITALS: BP 151/88
[2018-05-03 06:10] LABS: CHLORIDE 111 MEQ/L (99-109); CREATINE KINASE 56 IU/L (1-294); CREATININE 1.4 MG/DL (0.6-1.3); GFR ESTIMATE (CALCULATED) 38 mL/min/; GLUCOSE 140 mg/dL (70-99); POTASSIUM 4.4 MEQ/L (3.7-5.4); SODIUM 143 MEQ/L (136-147); UREA NITROGEN (BUN) 42 mg/dL (9-23)
[2018-05-03 06:19] LABS: HEMATOCRIT 37.7 % (36.0-46.0); HEMOGLOBIN 11.1 G/DL (11.9-15.5); MCH 25.6 PG (29.0-34.0); MCHC 29.4 G/DL (30.0-36.0); MCV 86.9 FL (83-99); RBC DIS.WIDTH-CV 16.2 % (11.8-14.6); RBC DIS.WIDTH-SD 51.7 % (39-53); RED BLOOD COUNT 4.34 M/uL (3.80-5.20); WHITE BLOOD COUNT 13.8 K/uL (4.1-10.2)
[2018-05-03 06:20] LABS: BASOPHIL (%) 0.2 % (0-1); EOSINOPHIL (%) 0.4 % (0-5); EOSINOPHIL COUNT 0.1 K/uL (0-0.3); IMMATURE GRANULOCYTE (%) 2.2 % (0.0-0.7); LYMPHOCYTE (%) 13.8 % (15-42); LYMPHOCYTE COUNT 1.9 K/uL (1.0-2.8); MONOCYTE (%) 9.2 % (3-12); MONOCYTE COUNT 1.3 K/uL (0-0.8); NEUTROPHIL (%) 74.2 % (45-76); NEUTROPHIL COUNT 10.3 K/uL (1.8-6.4); PLAT.SUFFICIENCY ADEQUATE
[2018-05-03 06:31] LABS: PLATELET COUNT UNABLE TO REPORT K/uL (156-360)
[2018-05-03 07:54] VITALS: BP 164/74
[2018-05-03 11:46] VITALS: BP 132/63
[2018-05-03 15:16] VITALS: BP 123/68
[2018-05-03 19:08] VITALS: BP 137/67
[2018-05-04 00:50] VITALS: BP 135/64
[2018-05-04 03:38] VITALS: BP 156/71
[2018-05-04 05:57] LABS: BASOPHIL (%) 0.3 % (0-1); EOSINOPHIL (%) 0 % (0-5); HEMATOCRIT 35.4 % (36.0-46.0); HEMOGLOBIN 10.5 G/DL (11.9-15.5); IMMATURE GRANULOCYTE (%) 2.4 % (0.0-0.7); LYMPHOCYTE (%) 11.5 % (15-42); LYMPHOCYTE COUNT 1.6 K/uL (1.0-2.8); MCHC 29.7 G/DL (30.0-36.0); MCV 87.6 FL (83-99); MONOCYTE (%) 6.8 % (3-12); MONOCYTE COUNT 0.9 K/uL (0-0.8); NEUTROPHIL COUNT 10.6 K/uL (1.8-6.4); RBC DIS.WIDTH-CV 16.1 % (11.8-14.6); RBC DIS.WIDTH-SD 51.9 % (39-53); RED BLOOD COUNT 4.04 M/uL (3.80-5.20); WHITE BLOOD COUNT 13.5 K/uL (4.1-10.2)
[2018-05-04 05:59] LABS: PLATELET COUNT 182 K/uL (156-360)
[2018-05-04 06:10] LABS: CHLORIDE 110 MEQ/L (99-109); CREATININE 1.5 MG/DL (0.6-1.3); GFR ESTIMATE (CALCULATED) 35 mL/min/; GLUCOSE 154 mg/dL (70-99); POTASSIUM 4.5 MEQ/L (3.7-5.4); SODIUM 142 MEQ/L (136-147); UREA NITROGEN (BUN) 41 mg/dL (9-23)
[2018-05-04 06:26] LABS: CREATINE KINASE 49 IU/L (1-294)
[2018-05-04 08:31] VITALS: BP 128/60
[2018-05-04 11:27] VITALS: BP 137/70
[2018-05-04] MEDS ORDERED: DUONEB 2.5-0.5 M3 ML AEROSOL (11:49)
[2018-05-04] MEDS ORDERED: NIFEDIPINE ER60 MG PO (11:50)
[2018-05-04] MEDS ORDERED: CARVEDILOL25 MG PO (11:50)
== END 2018-05-04 16:08 | DRG 208 ==
LOC: EME 14:06 → 4EAST 15:40 → EDOF 15:40 → 2EASTP 15:40 → 2EAST 15:40 → 4WEST 15:40 → ENRESERV 15:50 → CANRESERV 15:50 → ENRESERV 15:56 → 2EASTP 16:40 → 2EAST 04-24 19:05 → 4WEST 04-28 01:14 → ENRESERV 05-02 20:01 → 4EAST 05-02 21:10
PROVIDERS: Emergency Medicine; Family Medicine; Hospitalist; Internal Medicine; Internal Medicine Critical Care Medicine; Surgery
DX: J18.9 Pneumonia, unspecified organism (principal); I50.9 Heart failure, unspecified; J44.1 Chronic obstructive pulmonary disease with (acute) exacerbation; N18.3 Chronic kidney disease, stage 3 (moderate); J96.01 Acute respiratory failure with hypoxia; I13.0 Hypertensive heart and chronic kidney disease with heart failure and stage 1 through stage 4 chronic kidney disease, or unspecified chronic kidney disease; G40.909 Epilepsy, unspecified, not intractable, without status epilepticus; E11.22 Type 2 diabetes mellitus with diabetic chronic kidney disease; E66.9 Obesity, unspecified; J44.0 Chronic obstructive pulmonary disease with (acute) lower respiratory infection; Z86.73 Personal history of transient ischemic attack (TIA), and cerebral infarction without residual deficits; Y95 Nosocomial condition; Z66 Do not resuscitate; M19.90 Unspecified osteoarthritis, unspecified site; Z85.3 Personal history of malignant neoplasm of breast; Z90.12 Acquired absence of left breast and nipple; Z87.891 Personal history of nicotine dependence; Z90.11 Acquired absence of right breast and nipple; Z68.43 Body mass index [BMI] 50.0-59.9, adult; R41.0 Disorientation, unspecified; N17.9 Acute kidney failure, unspecified; E78.5 Hyperlipidemia, unspecified
CPT/HCPCS: 36600; 71045; 71250; 74230; 80048; 80053; 80076; 80202; 82550; 82948; 83605; 83735; 83880; 84100; 84478; 84484; 85025; 85025 91; 85610; 85730; 87040; 87070; 87205; 87641; 92526 GN; 92610 GN; 92611 GN; 93005; 93306; 93970; 94002; 94003; 94640; 94760; 94799; 97530 GO; 97530 GP; 99281; 99284; C1751; J0330; J1644; J1815; J1940; J1953; J2543; J2704; J2920; J2930; J3010; J3370; J7030; J7050; S0028